=== PATIENT | male | born 1955 | race Caucasian/White ===

== ENCOUNTER 2023-04-16 07:58 | Inpatient (IN) | payer MEDICARE ==
[2023-04-16] VITALS (24 sets, daily range): BP systolic 93–130; BP diastolic 53–84; PULSE 43–115; RESP 15–25; TEMP 97.9–98.4; O2SAT 68–98
[~2023-04-16] VITALS: Ht 182.9 cm; Wt 104.1 kg
[~2023-04-16 07:58] MED LIST: ALBU8HFA PO; ALLO300T11 PO; ASPI81TA52 PO; ATOR20TA66 PO; BUPR300T53 PO; COLC0.6T72 PO; DOCUMENT DATE & TIME OF BETA-BLOCKER PO ONE; LEVO75TA7 PO; METO-384 PO; OMEP20CA15 PO; WARF-65 PO; albuterol 2.5 MG/3 ML nebule NEB ONE; cefazolin 2gm/D5W 100mL 100 ML IV ONE; famotidine 20mg tablet PO ONE; ringers solution, lacted 1,000 ML IV SCH
[2023-04-16] MEDS ORDERED: morphine 2 MG/ML inj. syringe IV PRN ×2 (08:10→11:30)
[2023-04-16] MEDS ORDERED: ringers solution, lacted 1,000 ML IV SCH ×2 (08:10→11:30)
[2023-04-16] MEDS ORDERED: ondansetron/PF 4mg/2ml inj IV PRN ×3 (08:10→11:30)
[2023-04-16] MEDS ORDERED: hydrALAZINE 20mg/ml inj. IV PRN ×2 (08:10→11:30)
[2023-04-16] MEDS ORDERED: fentaNYL/PF 50MCG/1 ML 2ML syringe IV PRN ×4 (08:10→11:30)
[2023-04-16] MEDS ORDERED: morphine 4 MG/ML inj SYRINge IV PRN ×2 (08:10→11:30)
[2023-04-16] MEDS ORDERED: labetalol 20mg/4ml (5mg/ml) syringe IV PRN (08:10)
[2023-04-16] MEDS ORDERED: vancomycin 1,000mg inj ONE (08:21)
[2023-04-16] MEDS ORDERED: desflurane 240ml liquid inh. IH ONE (10:28)
[2023-04-16] MEDS ORDERED: dexamethasone sod phosphate 10mg/ml inj ONE (10:28)
[2023-04-16] MEDS ORDERED: naloxone 0.4 mg/ml inj IV PRN (10:30)
[2023-04-16] MEDS ORDERED: HYDROcodone/acetaminophen 10/325mg tab PO PRN (10:30)
[2023-04-16] MEDS ORDERED: midazolam 1 mg/ML 2ml injection ONE (10:30)
[2023-04-16] MEDS ORDERED: diphenhydrAMINE 25mg capsule PO PRN (10:30)
[2023-04-16] MEDS ORDERED: acetaminophen 325mg tablet PO PRN (10:30)
[2023-04-16] MEDS ORDERED: fentaNYL/PF 50MCG/1 ML 2ML syringe ONE (10:30)
[2023-04-16] MEDS ORDERED: propofol inj 20 ML IV ONE (10:32)
[2023-04-16] MEDS ORDERED: ondansetron/PF 4mg/2ml inj ONE (10:32)
[2023-04-16] MEDS ORDERED: LIDOcaine 2% (20mg/ml) 5ml vial ONE (10:32)
[2023-04-16] MEDS ORDERED: tranexamic acid 100mg/ml inj. ONE (10:34)
[2023-04-16] MEDS ORDERED: acetaminophen 1,000mg/100ml IV 100 ML IV ONE (10:54)
[2023-04-16] MEDS ORDERED: ePHEDrine 50MG/ML INJ. ONE (11:01)
[2023-04-16] MEDS ORDERED: ATROPINE SULFATE 0.4 MG/ML injection (OR only) ONE (11:08)
[2023-04-16] MEDS ORDERED: ROPIVAcaine 0.5% (5mg/ml) 30ml vial ONE (11:22)
[2023-04-16] MEDS ORDERED: enalaprilat dihydrate 2.5mg/2ml vial IV PRN (11:30)
[2023-04-16] MEDS ORDERED: methylene blue (5mg/ml) 50mg/10ml ampul IV ONE (11:49)
--- NOTE | 2023-04-16 13:58 | NUR ---
Received from OR via HOSPITAL BED, accompanied by Anesthesiologist and report given by MARA Anesthesiologist. PATIENT A&OX4, DENIES PAIN, V/S WNL, SCD ON , PIV 20G LEFT FOREARM, DRESSING SHOULDER WRAP TO RIGHT SIDE C/D/I AND COLD POWDER PACK AND ARM SLING. Addendum: 04/16/23 at 1418 by Austin Smith RN Amended: Links added.
--- NOTE | 2023-04-16 15:31 | NUR ---
Received report from NANCY Holland from PACU. Patients is doing well post Sx. CS WNL, eating ice chips, nerve blocked active, no on q pump. Patients pain level is controlled. Being transferred to room 4013 A.
--- NOTE | 2023-04-16 15:38 | NUR ---
PATIENT HAS MET ALL CRITERIA FOR TRANSFER TO ORTHO FLOOR. VSS. DRESSINGS INTACT. BED LOW, CALL LIGHT PRESENT AND 2 RAILS UP. RN PRESENT TO ACCEPT CARE OF PATIENT AND REPORT HAS BEEN CALLED. ALL QUESTIONS ANSWERED TO ACCEPTING RN. Addendum: 04/16/23 at 1556 by Austin Smith RN Amended: Links added.
[2023-04-16] MEDS: cefazolin 2gm/D5W 100mL 100 ML IV SCH ×3 (16:37→23:51)
[2023-04-16] MEDS: potassium cl 20mEq in 1/2 NS 1,000 ML IV SCH ×2 (16:37→23:50)
--- NOTE | 2023-04-16 18:15 | NUR ---
Patient in room ORTHO 4013. I have received report from Savannah FABIAN and had the opportunity to ask questions and assume patient care.
[2023-04-16] MEDS: HYDROcodone/acetaminophen 10/325mg tab PO PRN (19:12)
[2023-04-17 00:50] VITALS: O2SAT 95
[2023-04-17 00:51] VITALS: O2SAT 65
[2023-04-17] MEDS: HYDROcodone/acetaminophen 10/325mg tab PO PRN ×2 (01:55→07:57)
[2023-04-17 02:02] VITALS: BP 111/65; PULSE 91; RESP 17; TEMP 98.5; O2SAT 94
[2023-04-17] MEDS: potassium cl 20mEq in 1/2 NS 1,000 ML IV SCH (03:56)
[2023-04-17 06:00] VITALS: BP 116/62; PULSE 84; RESP 18; TEMP 97.4; O2SAT 95
--- NOTE | 2023-04-17 06:15 | NUR ---
Problems reprioritized. Patient report given, questions answered & plan of care reviewed with Iveth FABIAN.
--- NOTE | 2023-04-17 06:17 | NUR ---
Patient in room ORTHO 4013. I have received report from Liz CRUZ and had the opportunity to ask questions and assume patient care.
[2023-04-17 06:49] LABS: BASOPHILS % (AUTO) 0.1 % (0-1); EOSINOPHILS % (AUTO) 0 % (0-6); HEMATOCRIT 36.6 % (42.0-52.0); HEMOGLOBIN 12.2 g/dl (14.0-17.9); LYMPHOCYTES # (AUTO) 0.9 X10'3 (1.1-4.8); LYMPHOCYTES % (AUTO) 5.8 % (21-51); MEAN CORPUSCULAR HEMOGLOBIN 30.9 PG (27.0-31.0); MEAN CORPUSCULAR HGB CONC 33.4 g/dL (33.0-36.5); MEAN CORPUSCULAR VOLUME 92.5 FL (78-98); MEAN PLATELET VOLUME 9.3 FL (7.4-10.4); MONOCYTES # (AUTO) 0.9 X10'3 (0-0.9); MONOCYTES % (AUTO) 5.9 % (2-12); NEUTROPHILS % (AUTO) 88.2 % (42-75); PLATELET COUNT 148 X10'3 (140-440); RED BLOOD COUNT 3.96 X10'6 (4.70-6.10); RED CELL DISTRIBUTION WIDTH 15.2 % (11.5-14.5); WHITE BLOOD COUNT 14.7 X10'3 (4.5-11.0)
[2023-04-17 06:57] LABS: ANION GAP 11 (8-16); CHLORIDE 104 MMOL/L (99-107); POTASSIUM 4.3 MMOL/L (3.5-5.1); SODIUM 137 MMOL/L (135-145); TOTAL CARBON DIOXIDE 22.5 MMOL/L (24-32)
[2023-04-17 08:00] VITALS: RESP 18; O2SAT 95
--- NOTE | 2023-04-17 09:30 | NUR ---
Patient discharged home today. IV removed and all belongings gathered. All instructions were explained and all questions answered. Patient is alert and appropriate for discharge. Patient was wheeled downstairs and into private vehicle.
--- NOTE | 2023-04-17 09:51 | NUR ---
GLOVE PRINTER documentation: I have reviewed and agree with all interventions, assessments performed and documented by Iveth Lozano LVN.
--- NOTE | 2023-04-17 09:52 | NUR ---
Per EMR pt s/p right TSA. Pt discharged prior to RD being available for bedside visit. Written protein education with ONS coupons and RD contact information mailed to patient's address found in EMR. Will remain available. Addendum: 04/17/23 at [address] Amended: Links added.
== END 2023-04-17 09:32 | disposition home or self-care (01) | DRG 483 ==
LOC: PAS IN 07:58 → ORTHO 4S 15:45
PROVIDERS: ADMIT Specialist; ATTEND Specialist
PROC: 0LS30ZZ Reposition Right Upper Arm Tendon, Open Approach (ICD-10-PCS; 2023-04-16)
PROC: 3E0T3BZ Introduction of Anesthetic Agent into Peripheral Nerves and Plexi, Percutaneous Approach (ICD-10-PCS; 2023-04-16)
PROC: 3E0T33Z Introduction of Anti-inflammatory into Peripheral Nerves and Plexi, Percutaneous Approach (ICD-10-PCS; 2023-04-16)
PROC: 0RRJ0JZ Replacement of Right Shoulder Joint with Synthetic Substitute, Open Approach (ICD-10-PCS; principal; 2023-04-16 10:28)
DX: M19.011 Primary osteoarthritis, right shoulder (principal); Z79.899 Other long term (current) drug therapy
CPT/HCPCS: 36415; 73020; 73030; 76000; 80051; 82948; 85025; 86885; 86900; 86901; 87081; 94640; 94760; 97116; 97161; 97530; A4565; A4618; A6449; A6455; A7000; C1713; C1776; G0378; J0131; J0690; J1100; J2250; J2405; J2704; J2795; J3010; J3370; J3480; J3490; J7120; Q9968